=== PATIENT | female | born 1990 | race Caucasian/White ===

== ENCOUNTER 2017-10-08 12:38 | Emergency (ER) | payer SELFPAY ==
--- NOTE | 2017-10-08 14:46 | EDM.PDOC ---
Scribed by Sandra Ferrara 10/08/17 0461 for Augustine Lin MD ED HPI GENERAL MEDICAL PROBLEM - General Chief Complaint: UNIX ADMINISTRATOR Problem Stated Complaint: PG, NOT SURE OF DATE, SPOTTING/CRAMPING Time Seen by Provider: 10/08/17 12:55 Source of Information: Reports: Patient, RN, RN Notes Reviewed History Limitations: Reports: No Limitations - History of Present Illness INITIAL COMMENTS - FREE TEXT/NARRATIVE: G5. P2, sAB, stillborn,,,,, L2, c-sectionx2 patient who presents with onset of pelvic cramping at 0400 this morning. Then had spotting--bleeding eventually about as heavy as a period. Denies fever or chills. Blood type "O" Rh:positive per old records. Onset: Today Location: Reports: Abdomen Quality: Reports: Ache, Other (cramping) Severity: Moderate Improves with: Reports: None Worsens with: Reports: None Associated Symptoms: Reports: No Other Symptoms Lower Abdomen Pain Score (Numeric/FACES): 6 - Related Data Allergies Allergy/AdvReac Type Severity Reaction Status Date / Time No Known Allergies Allergy Verified 10/08/17 12:43 Home Meds: Home Meds Sertraline [Zoloft] 100 mg PO DAILY 10/08/17 [History] buPROPion [Wellbutrin] 75 mg PO DAILY 10/08/17 [History] Past Medical History - Past Health History Medical/Surgical History: Denies Medical/Surgical History : 5 Para: 2 Psychiatric History: Reports: Anxiety, Depression - Past Surgical History Female Surgical History: Reports: Section (x2), D&C (x1) Social & Family History - Family History Family Medical History: Noncontributory - Tobacco Use Smoking Status *Q: Current Every Day Smoker Years of Tobacco use: 3 Packs/Tins Daily: 0.3 - Caffeine Use Caffeine Use: Reports: Soda - Recreational Drug Use Recreational Drug Use: No ED ROS GENERAL - Review of Systems Review Of Systems: ROS reveals no pertinent complaints other than HPI. ED EXAM - Physical Exam Exam: See Below Exam Limited By: No Limitations General Appearance: Alert, WD/WN, No Apparent Distress Throat/Mouth: Normal Inspection Head: Atraumatic, Normocephalic Neck: Normal Inspection Respiratory/Chest: No Respiratory Distress, Lungs Clear, Normal Breath Sounds, No Accessory Muscle Use, Chest Non-Tender Cardiovascular: Normal Peripheral Pulses, Regular Rate, Rhythm, No Edema, No Gallop, No JVD, No Murmur, No Rub GI/Abdominal Exam: Normal Bowel Sounds, Soft, No Organomegaly, No Distention, No Abnormal Bruit, No Mass, Pelvis Stable, Tender (mild suprapubic tenderness) Rectal Exam: Deferred (Female) Exam: Other (deferred) Back Exam: Normal Inspection, Full Range of Motion. No: CVA Tenderness (L), CVA Tenderness (R) Extremities: Normal Inspection Neurological: Alert, Oriented, CN II-XII Intact, Normal Cognition, Normal Gait, No Motor/Sensory Deficits Psychiatric: Normal Affect, Normal Mood Skin Exam: Warm, Dry, Intact, Normal Color, No Rash Course - Vital Signs Last Recorded V/S: Last Vital Signs Temp 36.6 C 10/08/17 12:45 Pulse 88 10/08/17 12:45 Resp 16 10/08/17 12:45 BP 120/58 L 10/08/17 12:45 Pulse Ox 100 10/08/17 12:45 - Orders/Labs/Meds Orders: Active Orders 24 hr Category Date Time Status CHLAMYDIA/GC NUCLEIC ACID AMP [MREF] Routine Lab 10/08/17 12:56 Received Labs: Laboratory Tests 10/08/17 10/08/17 10/08/17 Range/Units 12:56 12:56 12:56 WBC (5.0-10.0) 10^3/uL RBC (4.2-5.4) 10^6/uL Hgb (12.0-16.0) g/dL Hct (37.0-47.0) % MCV (80-100) fL MCH (27.0-34.0) pg MCHC (33.0-35.0) g/dL Plt Count (150-450) 10^3/uL Neut % (Auto) (42.2-75.2) % Lymph % (Auto) (20.5-50.1) % [place] % (Auto) (2-8) % Eos % (Auto) (1.0-3.0) % Baso % (Auto) (0.0-1.0) % HCG, Quant (0-25) mIU/ml Beta HCG, Quant mIU/ml Urine Color Other (YELLOW) Urine Appearance Slightly cloudy (CLEAR) Urine pH 6.0 (5.0-9.0) Ur Specific [place] 1.010 (1.005-1.030) Urine Protein 30 H (NEGATIVE) Urine Glucose (UA) Negative (NEGATIVE) Urine Ketones Negative (NEGATIVE) Urine Occult Blood Large H (NEGATIVE) Urine Nitrite Negative (NEGATIVE) Urine Bilirubin Negative (NEGATIVE) Urine Urobilinogen 0.2 (0.2-1.0) mg/dL Ur Leukocyte Esterase Small H (NEGATIVE) Urine RBC 0-5 /HPF Urine WBC 5-10 H (0-5/HPF) /HPF Ur Epithelial Cells Moderate H /HPF Urine Bacteria Moderate H (0-FEW/HPF) /HPF Urine Mucus Rare /LPF Urine HCG, Qual Positive Urine Opiates Screen Negative (NEGATIVE) Ur Oxycodone Screen Negative (NEGATIVE) Urine Methadone Screen Negative (NEGATIVE) Ur Barbiturates Screen Negative (NEGATIVE) U Tricyclic Antidepress Negative (NEGATIVE) Ur Phencyclidine Scrn Negative (NEGATIVE) Ur Amphetamine Screen Negative (NEGATIVE) U Methamphetamines Scrn Negative (NEGATIVE) Urine MDMA Screen Negative (NEGATIVE) U Benzodiazepines Scrn Negative (NEGATIVE) Urine Cocaine Screen Negative (NEGATIVE) U Marijuana (THC) Screen Negative (NEGATIVE) 10/08/17 10/08/17 Range/Units 13:22 13:22 WBC 9.5 (5.0-10.0) 10^3/uL RBC 4.90 (4.2-5.4) 10^6/uL Hgb 13.3 (12.0-16.0) g/dL Hct 40.3 (37.0-47.0) % MCV 82.2 (80-100) fL MCH 27.1 (27.0-34.0) pg MCHC 33.0 (33.0-35.0) g/dL Plt Count 188 (150-450) 10^3/uL Neut % (Auto) 79.2 H (42.2-75.2) % Lymph % (Auto) 10.9 L (20.5-50.1) % [place] % (Auto) 8.4 H (2-8) % Eos % (Auto) 1.3 (1.0-3.0) % Baso % (Auto) 0.2 (0.0-1.0) % HCG, Quant > 1324 H (0-25) mIU/ml Beta HCG, Quant 96532 mIU/ml Urine Color (YELLOW) Urine Appearance (CLEAR) Urine pH (5.0-9.0) Ur Specific [place] (1.005-1.030) Urine Protein (NEGATIVE) Urine Glucose (UA) (NEGATIVE) Urine Ketones (NEGATIVE) Urine Occult Blood (NEGATIVE) Urine Nitrite (NEGATIVE) Urine Bilirubin (NEGATIVE) Urine Urobilinogen (0.2-1.0) mg/dL Ur Leukocyte Esterase (NEGATIVE) Urine RBC /HPF Urine WBC (0-5/HPF) /HPF Ur Epithelial Cells /HPF Urine Bacteria (0-FEW/HPF) /HPF Urine Mucus /LPF Urine HCG, Qual Urine Opiates Screen (NEGATIVE) Ur Oxycodone Screen (NEGATIVE) Urine Methadone Screen (NEGATIVE) Ur Barbiturates Screen (NEGATIVE) U Tricyclic Antidepress (NEGATIVE) Ur Phencyclidine Scrn (NEGATIVE) Ur Amphetamine Screen (NEGATIVE) U Methamphetamines Scrn (NEGATIVE) Urine MDMA Screen (NEGATIVE) U Benzodiazepines Scrn (NEGATIVE) Urine Cocaine Screen (NEGATIVE) U Marijuana (THC) Screen (NEGATIVE) Departure - Departure Time of Disposition: 14:43 Disposition: Home, Self-Care 01 Condition: Good Clinical Impression: Threatened miscarriage, Bacterial vaginosis - Discharge Information Instructions: Threatened Miscarriage, Bacterial Vaginosis, [id number] Forms: ED Department Discharge Additional Instructions: RX: Flagyl 500mg. Light activity as tolerated. Pelvic rest, no sexual activity until rechecked by your doctor. Follow up in clinic on Monday for recheck. Return to ER if worse at any time. - My Orders Last 24 Hours: My Active Orders 10/08/17 12:56 CHLAMYDIA/GC NUCLEIC ACID AMP [MREF] Routine - Assessment/Plan Last 24 Hours: My Active Orders 10/08/17 12:56 CHLAMYDIA/GC NUCLEIC ACID AMP [MREF] Routine I have read and agree with the documentation that has been completed regarding this visit. By signing this record, I attest that the documentation was completed in my physical presence and is an accurate record of the encounter.
== END 2017-10-08 14:54 | disposition home or self-care (01) ==
LOC: DL.ED 12:38
DX: O20.0 Threatened abortion (principal); O23.599 Infection of other part of genital tract in pregnancy, unspecified trimester; O99.330 Smoking (tobacco) complicating pregnancy, unspecified trimester; F17.210 Nicotine dependence, cigarettes, uncomplicated; Z79.899 Other long term (current) drug therapy
CPT/HCPCS: 36415; 80305; 81001; 81025; 84702; 85025; 87491; 87591; 99284

== ENCOUNTER 2017-10-12 09:15 | Day surgery (SDC) | payer OTHER ==
[~2017-10-12 09:15] MED LIST: Lactated Ringers 1,000 ML IV SCH; Oxytocin/Normal Saline 30 UNIT/500 ML BAG IV SCH; Oxytocin/Normal Saline 30 UNIT/500 ML BAG ONE; Sodium Chloride 0.9% 10 ML Syringe FLUSH PRN
[2017-10-12] MEDS ORDERED: Silver Nitrate Applicator Each ONE (11:09)
[2017-10-12] MEDS ORDERED: Ferric Subsulfate Topical Soln 8 GM (8 ML) Bottle ONE (11:09)
--- NOTE | 2017-10-12 14:52 | OR ---
DATE: 10/12/2017 LOCATION OF SURGERY: [facility]. PROCEDURE: Dilation and curettage, sharp and suction. PREOPERATIVE DIAGNOSES: 1. A 27-year-old, 5, para 3 (2-1-2-2). 2. First trimester gestation with intrauterine demise and retained products of conception with incomplete spontaneous , vaginal bleeding and cramping. 3. Blood type O positive. 4. Depression and anxiety. 5. Known bicornuate uterus. 6. Patient requesting surgical intervention. POSTOPERATIVE DIAGNOSES: 1. A 27-year-old, 5, para 3 (2-1-2-2). 2. First trimester gestation with intrauterine demise and retained products of conception with incomplete spontaneous , vaginal bleeding and cramping. 3. Blood type O positive. 4. Depression and anxiety. 5. Known bicornuate uterus. 6. Patient requesting surgical intervention, confirmed. PHYSICIAN NON INVASIVE CARDIOLOGIST: Everton Hussein MS-III FINDINGS: This 27-year-old, 5, para 3 (2-1-2-2), presented to the clinic with nonviable 1st trimester gestation 12+ weeks by dates, however, had falling hCG levels, vaginal bleeding and cramping, and ultrasound confirmed a nonviable showing a 6-week gestation without a heartbeat. Please see my notes for details. Options were reviewed with the patient and she wished to proceed with D and C. Please see her Epic notes, and a preop H and P for further details. The patient had hemoglobin of 13.3. She had had bleeding since her ER visit; therefore, hemoglobin was repeated and it was stable in the morning of the procedure at 13.0. Type and screen were obtained in case she needed a blood transfusion and her hemoglobin was 13.0 with a blood type O positive and PRISCA negative. DESCRIPTION OF PROCEDURE: The patient was brought to the OR and underwent a general anesthesia without complications. She was prepped and draped in the usual sterile manner in dorsal lithotomy position. A time-out was performed in my presence. Bladder was catheterized with return of 75 mL of jose clear urine. Bimanual exam showed an enlarged uterus, approximately 12-week size. It was slightly retroverted and the cervix was noted to be anterior. The large weighted vaginal speculum was placed without difficulty and the cervix easily visualized. An anterior tenaculum was placed, single-tooth, easily on the anterior cervical lip at the 11 and 1 o'clock position. Uterine sound easily passed through the cervical os to a depth of nearly 12 cm. We could pass this both into the right and left uterine horns. The cervix was dilated up to the largest #20 Hegar dilator without difficulty. A #10 curved suction tip was placed into the uterus and the contents of the uterus were emptied without difficulty. Both the right horn and the left horn. A sharp curette was then used to ensure that both the right and left horns were empty. This appeared to be the case. No sign of active bleeding was seen and no residual tissue or clots were noted. The uterus again sounded to approximately 11-1/2 cm. The vaginal instruments were removed and there was no sign of active bleeding. The patient tolerated the procedure well and was awakened and transferred to recovery in good condition. ESTIMATED BLOOD LOSS: 75 mL. IV FLUIDS: Lactated Ringer 750 mL. URINE: 75 mL. The patient had a Pitocin infusing. COMPLICATIONS: There were no intraoperative complications. SPECIMEN: Sent to pathology. [facility] /[id number]
== END 2017-10-12 13:30 | disposition home or self-care (01) ==
LOC: DL.SDS 09:15
PROVIDERS: ATTEND Family Medicine
DX: O36.4XX1 Maternal care for intrauterine death, fetus 1 (principal); O03.4 Incomplete spontaneous abortion without complication; O99.341 Other mental disorders complicating pregnancy, first trimester; F41.8 Other specified anxiety disorders; O34.01 Maternal care for unspecified congenital malformation of uterus, first trimester; Q51.3 Bicornate uterus; Z3A.12 12 weeks gestation of pregnancy; Z72.0 Tobacco use; Z79.899 Other long term (current) drug therapy
CPT/HCPCS: 00940; 36415; 59812; 85025; 86850; 86900; 86901; J2590; J7120